=== PATIENT | male | born 1975 | race Caucasian/White ===

== ENCOUNTER 2017-11-20 20:23 | Emergency (ER) | payer MEDICARE, OTHER ==
[~2017-11-20] VITALS: Ht 185.4 cm; Wt 59.0 kg
[~2017-11-20 20:23] MED LIST: CARB200T39 PO; LAMO100T2 PO; LEVE100S PO; LEVO150T8 PO; LISI10TA5 PO
[2017-11-20 20:26] VITALS: BP 164/103
== END 2017-11-20 21:57 | disposition home or self-care (01) ==
LOC: ER 20:27
DX: R56.9 Unspecified convulsions (principal); Z88.0 Allergy status to penicillin
CPT/HCPCS: 99281; A4606; Z7502; Z7610

== ENCOUNTER 2018-11-04 11:08 | Emergency (ER) | payer MEDICARE, OTHER ==
[~2018-11-04] VITALS: Ht 185.4 cm; Wt 60.8 kg
--- NOTE | 2018-11-04 11:45 | NUR ---
DR. DESOUZA AT BEDSIDE FOR EVAL.
--- NOTE | 2018-11-04 11:56 | NUR ---
RADIOLOGY AT BEDSIDE FOR XRAY.
[2018-11-04 12:59] VITALS: BP 118/76
--- NOTE | 2018-11-04 12:59 | NUR ---
DPatient discharged to home in stable condition. Written and verbal after care instructions given. Patient verbalizes understanding of instruction.
== END 2018-11-04 12:59 | disposition home or self-care (01) ==
LOC: ER 11:13
DX: S82.431A Displaced oblique fracture of shaft of right fibula, initial encounter for closed fracture (principal); S82.54XA Nondisplaced fracture of medial malleolus of right tibia, initial encounter for closed fracture; G35 Multiple sclerosis; Z98.890 Other specified postprocedural states; Z88.0 Allergy status to penicillin; Z79.899 Other long term (current) drug therapy; W18.39XA Other fall on same level, initial encounter; Y93.89 Activity, other specified; Y92.89 Other specified places as the place of occurrence of the external cause; Y99.8 Other external cause status
CPT/HCPCS: 29515; 73610; 99283; A4606

== ENCOUNTER 2018-11-16 15:19 | Emergency (ER) | payer MEDICARE, OTHER ==
[~2018-11-16] VITALS: Ht 152.4 cm; Wt 65.8 kg
[2018-11-16 15:38] VITALS: BP 122/78
== END 2018-11-16 16:13 | disposition home or self-care (01) ==
LOC: ER 15:24
DX: S30.0XXA Contusion of lower back and pelvis, initial encounter (principal); I10 Essential (primary) hypertension; G91.9 Hydrocephalus, unspecified; G35 Multiple sclerosis; R56.9 Unspecified convulsions; Z98.890 Other specified postprocedural states; Z88.0 Allergy status to penicillin; W18.39XA Other fall on same level, initial encounter; Y93.89 Activity, other specified; Y92.002 Bathroom of unspecified non-institutional (private) residence as the place of occurrence of the external cause; Y99.8 Other external cause status
CPT/HCPCS: Z7502

== ENCOUNTER 2019-08-18 12:25 | Emergency (ER) | payer MEDICARE, OTHER ==
[~2019-08-18] VITALS: Ht 185.4 cm; Wt 58.5 kg
--- NOTE | 2019-08-18 12:40 | NUR ---
PT C/O L ANKLE PAIN STARTED 2 DAYS AGO. PT AAOX4, VSS, BREATHING EVEN AND UNLABORED ON ROOM AIR. PT CONNECTED TO THE MONITOR. WILL CONTINUE TO MONITOR
[2019-08-18] MEDS ORDERED: KETOROLAC TROMETHAMINE INJ 30 MG/ML VIAL ONE (13:56)
[2019-08-18] MEDS ORDERED: KETOROLAC TROMETHAMINE INJ 30 MG/ML VIAL IV ONE (14:00)
[2019-08-18] MEDS ORDERED: IV NS 0.9% 1,000 ML BAG IV ONE (14:00)
[2019-08-18 14:11] LABS: EOSINOPHILS % (AUTO) 0.7 % (0.0-6.0); HEMATOCRIT 42 % (39-51); HEMOGLOBIN 14.3 g/dL (13.5-17.5); LYMPHOCYTES # (AUTO) 1.3 /CMM (0.8-4.8); LYMPHOCYTES % (AUTO) 26.6 % (20.0-44.0); MEAN CORPUSCULAR HGB CONC 34 g/dl (31.0-36.0); MEAN CORPUSCULAR VOLUME 88 fL (80-96); MONOCYTES # (AUTO) 0.4 /CMM (0.1-1.30); MONOCYTES % (AUTO) 7.2 % (2.0-12.0); NEUTROPHILS # (AUTO) 3.2 /CMM (1.8-8.9); NEUTROPHILS % (AUTO) 64.5 % (43.0-81.0); PLATELET COUNT (AUTO) 225 /CMM (150-450); RED BLOOD CELL COUNT(AUTO) 4.78 MIL/uL (4.5-6.0); WHITE BLOOD COUNT (AUTO) 4.9 K/uL (4.3-11.0)
[2019-08-18 14:20] LABS: CREATININE 1.3 mg/dL (0.6-1.3); POTASSIUM 4.1 mmol/L (3.5-5.1)
[2019-08-18 14:25] LABS: BILIRUBIN,DIRECT 0.1 mg/dL (0.0-0.2); BILIRUBIN,TOTAL 0.3 mg/dL (0.2-1.0); TOTAL PROTEIN, SERUM 7.3 g/dL (6.4-8.2)
[2019-08-18] MEDS ORDERED: CEFTRIAXONE 1GM BAG (ER ONLY) 1 GM/50 ML PIGGYBACK IV ONE (15:00)
[2019-08-18] MEDS ORDERED: CEFTRIAXONE 1GM BAG (ER ONLY) 50 ML IV ONE (15:02)
--- NOTE | 2019-08-18 18:33 | NUR ---
IV removed. Catheter intact and site benign. Pressure and 4x4 applied to site. No bleeding noted.Patient discharged to home in stable condition. Written and verbal after care instructions given. Patient verbalizes understanding of instruction.
[2019-08-18 18:34] VITALS: BP 140/78
--- NOTE | 2019-08-20 09:42 | NUR ---
LATE ENTRY: ADDENDUM: ROCEPHIN 1 GM LFA G22 IV START TIME: 1519 END TIME: 1549
== END 2019-08-18 18:35 | disposition home or self-care (01) ==
LOC: ER 12:25
DX: L03.116 Cellulitis of left lower limb (principal); M62.561 Muscle wasting and atrophy, not elsewhere classified, right lower leg; M62.562 Muscle wasting and atrophy, not elsewhere classified, left lower leg; E86.0 Dehydration; G40.909 Epilepsy, unspecified, not intractable, without status epilepticus; M62.81 Muscle weakness (generalized); G35 Multiple sclerosis; Z98.890 Other specified postprocedural states; Z88.0 Allergy status to penicillin
CPT/HCPCS: 36415; 73610; 80048; 80076; 83605 ×2; 84145; 85025; 87040 ×2; 93971; 96361; 96365; 96375; 99284; J0696; J1885; J7030

== ENCOUNTER 2019-12-14 13:25 | Inpatient (IN) | payer MEDICARE, OTHER ==
[~2019-12-14] VITALS: Ht 185.4 cm; Wt 59.0 kg
--- NOTE | 2019-12-14 13:43 | NUR ---
PT TAKEN TO CT VIA SIMONE
--- NOTE | 2019-12-14 13:54 | NUR ---
BIB MANAGER VAN,"SLUMPING FORWARD" NOTED SINCE 10 AM THIS MORNING WHILE IN A MALL AND UNABLE TO UNDERSTAND HER. STATES PT CAN NORMALLY HOLD HIMSELF UP. ALSO C/O CONSTANT GRUNTING. PER MANAGER VAN, PT "JUST NOT ACTING LIKE HIMSELF". PT IS NONVERBAL, NONAMBULATORY. VSS, RR EVEN AND UNLABORED ON RA. NO ACUTE DISTRESS NOTED. TO ER 12 AND READY FOR EVAL. Addendum: 12/14/19 at 1511 by BENITA PT IS VERBAL
[2019-12-14] MEDS ORDERED: METO25TA4 PO (15:13)
[2019-12-14] MEDS ORDERED: FOLI0.4T2 PO (15:13)
[2019-12-14] MEDS ORDERED: CARB200T8 PO (15:13)
[2019-12-14] MEDS ORDERED: LEVE500T20 PO (15:13)
[2019-12-14] MEDS ORDERED: LEVE500T9 PO (15:13)
[2019-12-14] MEDS ORDERED: LAMO100T17 PO (15:13)
[2019-12-14] MEDS ORDERED: AMLO2.5T4 PO (15:13)
--- NOTE | 2019-12-14 15:30 | NUR ---
PT TAKEN TO CT VIA SIMONE
[2019-12-14 15:35] LABS: BASOPHILS % (AUTO) 0.9 % (0.0-2.0); EOSINOPHILS % (AUTO) 1.7 % (0.0-6.0); HEMATOCRIT 38 % (39-51); HEMOGLOBIN 12.8 g/dL (13.5-17.5); LYMPHOCYTES # (AUTO) 1.2 /CMM (0.8-4.8); LYMPHOCYTES % (AUTO) 24.6 % (20.0-44.0); MEAN CORPUSCULAR HGB CONC 34 g/dl (31.0-36.0); MEAN CORPUSCULAR VOLUME 90 fL (80-96); MONOCYTES # (AUTO) 0.4 /CMM (0.1-1.30); MONOCYTES % (AUTO) 8.9 % (2.0-12.0); NEUTROPHILS % (AUTO) 63.9 % (43.0-81.0); PLATELET COUNT (AUTO) 170 /CMM (150-450); RED BLOOD CELL COUNT(AUTO) 4.29 MIL/uL (4.5-6.0); WHITE BLOOD COUNT (AUTO) 4.7 K/uL (4.3-11.0)
--- NOTE | 2019-12-14 15:41 | NUR ---
MOVE SHEET SUBMITTED AND CALLED FOR TELE BED
--- NOTE | 2019-12-14 15:41 | NUR ---
PT BACK FROM RADIOLOGY
[2019-12-14 15:50] LABS: ALCOHOL, BLOOD < 3 mg/dL (0-0)
[2019-12-14 15:55] LABS: ALANINE AMINOTRANSFERASE 17 U/L (12-78); ALBUMIN 3.6 g/dL (3.4-5.0); ALKALINE PHOSPHATASE 46 U/L (46-116); ASPARTATE AMINOTRANSFERASE 21 U/L (15-37); BILIRUBIN,TOTAL 0.4 mg/dL (0.2-1.0)
--- NOTE | 2019-12-14 16:00 | NUR ---
URINE SENT TO STAT LAB
--- NOTE | 2019-12-14 16:09 | NUR ---
[facility] PAGED
[2019-12-14 16:15] LABS: CARBAMAZEPINE (TEGRETOL) 9.8 ug/ml (4-11.9)
--- NOTE | 2019-12-14 16:44 | NUR ---
[facility]#115-1
--- NOTE | 2019-12-14 17:24 | NUR ---
REPORT GIVEN TO WARREN MORALEZ FOR 115-1
[2019-12-14] MEDS ORDERED: ONDANSETRON HCL/PF 4 MG/2 ML VIAL IVP PRN (18:00)
[2019-12-14] MEDS ORDERED: ZOLPIDEM TARTRATE 5 MG TABLET PO PRN (18:00)
[2019-12-14] MEDS ORDERED: MAG HYDROX/AL HYDROX/SIMETH 30 ML UDC PO PRN (18:00)
[2019-12-14] MEDS ORDERED: MAGNESIUM HYDROXIDE 30 ML UDC PO PRN (18:00)
[2019-12-14] MEDS ORDERED: Z GUARD REMEDY 2 OZ OINT TP PRN (18:00)
[2019-12-14] MEDS ORDERED: ACETAMINOPHEN 325 MG TABLET PO PRN (18:00)
[2019-12-14] MEDS ORDERED: HYDROCODONE/APAP 5/325MG 1 EACH TABLET PO PRN (18:00)
--- NOTE | 2019-12-14 18:46 | NUR ---
[facility]
--- NOTE | 2019-12-14 18:56 | NUR ---
TELE/RN NOTES RECEIVED PATIENT FORM ER ACCOMPANIED BY ER NURSE AND CAREGIVER. PATIENT IS ALERT AND ORIENTED X4. NO PAIN OR ACUTE DISTRESS AT THIS TIME. RESPIRATION EVEN AND UNLABORED. SKIN IS DRY WARM TO TOUCH. INITIAL SKIN ASSESSMENT WAS DONE. SKIN IS INTACT. IV ACCESS ON RHAND #22G. FLUSHING WELL. NO S/S OF INFECTION OR INFILTRATION. ALL NEEDS ANTICIPATED. CALL LIGHT WITHIN REACHED. BED LOCKED AND IN LOWEST POSITION. SAFETY MAINTAINED. PLAN OF CARE DISCUSSED. WILL CONTINUE TO MONITOR CLOSELY. ENDORSED TO PM NURSE FOR ELIAN.
--- NOTE | 2019-12-14 19:41 | NUR ---
TELE/RN OPENING NOTE RECEIVED PATIENT A/O X4 PATIENT IN NO SIGN OF ANY DISTRESS. ON THE MONITOR SR WITH HR IN THE 80'S. PATIENT IS ON ROOM AIR SATURATING AT 96% WITH NO COMPLAINTS OF SOB. PATIENT HAS A RIGHT HAND #22G IV PATENT WITH NO SIGN OF ANY INFILTRATION. PATIENT IS NON AMBULATORY WITH WHEELCHAIR AT BEDSIDE. PATIENT SHOWS NO SIGN OF ANY SLURRED SPEECH. IS ABLE TO ANSWER STATE NAME AND LOCATION. NO DRIFTING IN THE UPPER EXTREMITIES. ALL SAFETY PRECUATION HAVE BEEN APPLIED. WILL CONTINUE TO MONITOR.
[2019-12-14 20:00] VITALS: BP 139/92
[2019-12-14] MEDS: LEVETIRACETAM (250 MG) 250 MG TABLET PO SCH (21:02)
[2019-12-14] MEDS: LamoTRIgine 100 MG TABLET PO SCH (21:02)
[2019-12-14 21:03] LABS: CALCIUM, SERUM 8.6 mg/dL (8.5-10.1); CREATININE 1.3 mg/dL (0.6-1.3); MAGNESIUM 2.2 mg/dL (1.8-2.4); PHOSPHORUS 4.3 mg/dL (2.5-4.9); POTASSIUM 3.9 mmol/L (3.5-5.1)
[2019-12-15] VITALS: BP 117/77
[2019-12-15 04:00] VITALS: BP 107/68
--- NOTE | 2019-12-15 07:24 | NUR ---
TELE/RN CLOSING PATIENT IN BED ALERT WITH NO SIGN OF ANY DISTRESS. PATIENT ON ROOM AIR WITH NO SIGN OF ANY SOB. PATIENT ON MONITOR SHOWING SR HR IN THE 80'S. ALL SAFETY PRECAUTIONS APPLIED. ENDORSED PATIENT TO MORNING SHIFT NURSE FOR ELIAN.
--- NOTE | 2019-12-15 07:27 | NUR ---
DIRECTOR DIVERSITY OPENING NOTES RECEIVED PATIENT A/O X4 PATIENT. AWAKE, A/O X4 , VERBALLY RESPONSIVE AND ABLE TO MAKE NEEDS KNOWN. DENIES ANY PAIN OR DISCOMFORT AT THE MOMENT. IN NO SIGN OF ANY DISTRESS. ON TELE MONITOR SR WITH HR 76. PATIENT IS ON ROOM AIR SATURATING AT 96% WITH NO COMPLAINTS OF SOB. IV ACCESS ON THE RIGHT HAND #22G IV PATENT WITH NO SIGN OF ANY INFILTRATION. NON AMBULATORY WITH WHEELCHAIR AT BEDSIDE. NO DRIFTING IN THE UPPER EXTREMITIES. SAFETY MEASURE APPLIED , WILL CONTINUE TO MONITOR
[2019-12-15] MEDS ORDERED: LEVOTHYROXINE SODIUM 150 MCG TABLET PO SCH (07:30)
[2019-12-15] MEDS: LEVOTHYROXINE SODIUM 50 MCG TABLET PO SCH ×2 (07:30→07:54)
[2019-12-15 07:47] LABS: BASOPHILS # (AUTO) 0.1 /CMM (0.0-0.2); BASOPHILS % (AUTO) 1.4 % (0.0-2.0); EOSINOPHILS % (AUTO) 2.6 % (0.0-6.0); HEMATOCRIT 37 % (39-51); HEMOGLOBIN 12.4 g/dL (13.5-17.5); LYMPHOCYTES # (AUTO) 1.7 /CMM (0.8-4.8); LYMPHOCYTES % (AUTO) 39.8 % (20.0-44.0); MEAN CORPUSCULAR HGB CONC 34 g/dl (31.0-36.0); MEAN CORPUSCULAR VOLUME 88 fL (80-96); MONOCYTES # (AUTO) 0.4 /CMM (0.1-1.30); NEUTROPHILS % (AUTO) 47.2 % (43.0-81.0); PLATELET COUNT (AUTO) 209 /CMM (150-450); RED BLOOD CELL COUNT(AUTO) 4.22 MIL/uL (4.5-6.0); WHITE BLOOD COUNT (AUTO) 4.2 K/uL (4.3-11.0)
[2019-12-15 08:00] VITALS: BP 153/85
[2019-12-15 08:04] LABS: CALCIUM, SERUM 8.6 mg/dL (8.5-10.1); CREATININE 1.4 mg/dL (0.6-1.3); MAGNESIUM 2.2 mg/dL (1.8-2.4); PHOSPHORUS 4.3 mg/dL (2.5-4.9); POTASSIUM 3.7 mmol/L (3.5-5.1)
[2019-12-15] MEDS: FOLIC ACID 1 MG TABLET PO SCH (11:09)
[2019-12-15] MEDS: CARBAMAZEPINE 200 MG TABLET PO SCH ×2 (11:09→16:58)
[2019-12-15] MEDS: METOPROLOL SUCCINATE 25 MG TAB.SR.24H PO SCH (11:10)
[2019-12-15] MEDS: LEVETIRACETAM (250 MG) 250 MG TABLET PO SCH ×2 (11:10→17:13)
[2019-12-15] MEDS: LamoTRIgine 100 MG TABLET PO SCH ×2 (11:10→20:50)
[2019-12-15] MEDS: AMLODIPINE BESYLATE 2.5 MG TABLET PO SCH (11:10)
[2019-12-15] MEDS: IV NS 0.9% 1,000 ML IV PRN ×2 (11:19→21:16)
[2019-12-15 12:00] VITALS: BP 127/81
[2019-12-15 16:00] VITALS: BP 144/87
--- NOTE | 2019-12-15 19:15 | NUR ---
SHREDDER PICKER OPENING NOTES RECEIVED PATIENT A/O X4 PATIENT. AWAKE, SITTING ON BED, VERBALLY RESPONSIVE AND ABLE TO MAKE NEEDS KNOWN. DENIES ANY PAIN OR DISCOMFORT AT THE MOMENT. IN NO SIGN OF ANY DISTRESS. ON TELE MONITOR SR WITH HR 60'S-70'S. PATIENT IS ON ROOM AIR SATURATING AT 96% WITH NO COMPLAINTS OF SOB. IV ACCESS ON THE RIGHT HAND #22G IV PATENT WITH NO SIGN OF ANY INFILTRATION WITH ONGOING IVF OF 1L NS @100ML/HR INFUSING WELL. NON AMBULATORY WITH WHEELCHAIR AT BEDSIDE. NO DRIFTING IN THE UPPER EXTREMITIES. SAFETY MEASURE APPLIED CALL LIGHT WITHIN REACH , WILL CONTINUE TO MONITOR
--- NOTE | 2019-12-15 19:33 | NUR ---
RN CLOSING NOTES PATIENT IN BED ALERT WITH NO SIGN OF ANY DISTRESS. PATIENT ON ROOM AIR WITH NO SIGN OF ANY SOB. PATIENT ON MONITOR SHOWING SR HR 65. ALL SAFETY PRECAUTIONS APPLIED. ENDORSED PATIENT TO PM RN FOR ELIAN
[2019-12-15 20:00] VITALS: BP 135/83
[2019-12-16] VITALS: BP 145/90
[2019-12-16 04:00] VITALS: BP 122/87
[2019-12-16] MEDS: IV NS 0.9% 1,000 ML IV PRN (07:00)
[2019-12-16 07:26] LABS: BASOPHILS # (AUTO) 0.1 /CMM (0.0-0.2); BASOPHILS % (AUTO) 1.8 % (0.0-2.0); EOSINOPHILS % (AUTO) 2.4 % (0.0-6.0); HEMATOCRIT 35 % (39-51); HEMOGLOBIN 11.8 g/dL (13.5-17.5); LYMPHOCYTES # (AUTO) 1.9 /CMM (0.8-4.8); LYMPHOCYTES % (AUTO) 44.8 % (20.0-44.0); MEAN CORPUSCULAR HGB CONC 34 g/dl (31.0-36.0); MEAN CORPUSCULAR VOLUME 88 fL (80-96); MONOCYTES # (AUTO) 0.4 /CMM (0.1-1.30); MONOCYTES % (AUTO) 8.7 % (2.0-12.0); NEUTROPHILS # (AUTO) 1.8 /CMM (1.8-8.9); NEUTROPHILS % (AUTO) 42.3 % (43.0-81.0); PLATELET COUNT (AUTO) 208 /CMM (150-450); RED BLOOD CELL COUNT(AUTO) 3.94 MIL/uL (4.5-6.0); WHITE BLOOD COUNT (AUTO) 4.3 K/uL (4.3-11.0)
[2019-12-16 07:44] LABS: BILIRUBIN,TOTAL 0.2 mg/dL (0.2-1.0); CREATININE 1.2 mg/dL (0.6-1.3); PHOSPHORUS 3.4 mg/dL (2.5-4.9); TOTAL PROTEIN, SERUM 5.7 g/dL (6.4-8.2)
[2019-12-16] MEDS: LEVOTHYROXINE SODIUM 50 MCG TABLET PO SCH (07:53)
[2019-12-16 08:00] VITALS: BP_SYST 145; BP_SYST 170; BP_DIAS 89; BP_DIAS 90
[2019-12-16] MEDS: CARBAMAZEPINE 200 MG TABLET PO SCH ×2 (08:48→16:46)
[2019-12-16] MEDS: FOLIC ACID 1 MG TABLET PO SCH (08:48)
[2019-12-16] MEDS: AMLODIPINE BESYLATE 2.5 MG TABLET PO SCH (08:49)
[2019-12-16] MEDS: METOPROLOL SUCCINATE 25 MG TAB.SR.24H PO SCH (08:51)
[2019-12-16] MEDS: LamoTRIgine 100 MG TABLET PO SCH (08:51)
[2019-12-16] MEDS: LEVETIRACETAM (250 MG) 250 MG TABLET PO SCH (08:52)
--- NOTE | 2019-12-16 10:52 | NUR ---
multimedia educational specialist Notes Patient BP reassessed following morning VS. BP: 131/82 P.61. Will continue to monitor.
[2019-12-16 10:55] VITALS: BP 131/82
[2019-12-16] MEDS ORDERED: ENSURE ENLIVE 237 ML LIQUID (VANILLA) PO SCH (13:00)
[2019-12-16] MEDS ORDERED: LEVE500T20 PO (13:43)
[2019-12-16 16:00] VITALS: BP 129/85
--- NOTE | 2019-12-16 17:24 | NUR ---
RN NOTE PT DISCHARGED HOME ON HIS OWN WHEELCHAIR, IN STABLE CONDITION WITH CAREGIVER AND SPOKE ABOUT DISCHARGE WITH MANDO WELL, AND REMINDED HIM ABOUT KEPPRA DOSAGE INCREASED, AND THAT PT NEEDS TO FOLLOW UP WITH OUTPATIENT NEUROLOGIST. PT AND MANDO CAREGIVER VERBALIZED UNDERSTANDING. EXIT CARE DONE, ID BAND REMOVED, IV REMOVED, DISCHARGE PAPER SIGNED, DISCHARGE INSTRUCTIONS PROVIDED, TEACHING DONE TO PT AND PT VERBALIZED UNDERSTANDING,BELONGING LIST SIGNED, BELONGINGS GIVEN TO PT.
== END 2019-12-16 17:20 | disposition home or self-care (01) | DRG 683 ==
LOC: ER 13:25 → TELE1 16:54 → MEDSG1 12-16 10:56
PROVIDERS: ADMIT Registered Nurse; ATTEND Registered Nurse
DX: N17.0 Acute kidney failure with tubular necrosis (principal); G91.9 Hydrocephalus, unspecified; E44.1 Mild protein-calorie malnutrition; G40.909 Epilepsy, unspecified, not intractable, without status epilepticus; E03.9 Hypothyroidism, unspecified; M48.02 Spinal stenosis, cervical region; I10 Essential (primary) hypertension; D63.8 Anemia in other chronic diseases classified elsewhere; G93.89 Other specified disorders of brain; Z98.2 Presence of cerebrospinal fluid drainage device; Z88.0 Allergy status to penicillin; Z98.890 Other specified postprocedural states; Z87.891 Personal history of nicotine dependence; F10.21 Alcohol dependence, in remission; Q76.49 Other congenital malformations of spine, not associated with scoliosis; M85.80 Other specified disorders of bone density and structure, unspecified site; M50.222 Other cervical disc displacement at C5-C6 level; W05.0XXA Fall from non-moving wheelchair, initial encounter; Y92.511 Restaurant or cafe as the place of occurrence of the external cause
CPT/HCPCS: 36415; 70450-TC; 71045-TC; 72125-TC; 80048-TC; 80053-TC; 80061-TC; 80076-TC; 80156-TC; 80177; 80305; 82962-TC; 83540-TC; 83735-TC; 84100-TC; 84484-TC; 85025-TC; 85730-TC; 87081-TC; 92611-TC; 93307-TC; 93880-TC; 95819-TC; 97116-TC; 97530-TC; G0378; G0480; J7030

== ENCOUNTER 2020-06-25 09:18 | Emergency (ER) | payer MEDICARE, OTHER ==
[~2020-06-25] VITALS: Ht 185.4 cm; Wt 58.1 kg
[~2020-06-25 09:18] MED LIST changes: +AMLO2.5T4 PO; -CARB200T39 PO; +CARB200T8 PO; +FOLI0.4T2 PO; +LAMO100T17 PO; -LAMO100T2 PO; -LEVE100S PO; +LEVE500T20 PO; +LEVE500T9 PO; -LISI10TA5 PO; +METO25TA4 PO
--- NOTE | 2020-06-25 09:24 | NUR ---
[id number], from home, fell of his wheelchair, -ko, lac at the back of his head, 5/10 pain scale, to ER bed 9, hooked to monitor, changed to hosp gown, warm blanket provided, patient aao x 3, breathing even and unlabored. awaiting md odom.
--- NOTE | 2020-06-25 09:32 | NUR ---
DR AMARAL AT BEDSIDE FOR EVAL.
--- NOTE | 2020-06-25 09:46 | NUR ---
FLUSHED/CLEANED BACK AREA OF HEAD, NOTED W WOUND, [id number], NO BLEEDING NOTED.
--- NOTE | 2020-06-25 10:18 | NUR ---
PICKED UP BY DRY LUMBER GRADER VIA [facility] FOR CT SCAN.
--- NOTE | 2020-06-25 11:12 | NUR ---
Patient discharged to home in stable condition. Written and verbal after care instructions given. Patient verbalizes understanding of instruction. Patient discharged using wheelchair.
[2020-06-25 11:14] VITALS: BP 116/85
== END 2020-06-25 11:15 | disposition home or self-care (01) ==
LOC: ER 09:21
DX: S00.01XA Abrasion of scalp, initial encounter (principal); G35 Multiple sclerosis; I10 Essential (primary) hypertension; M62.81 Muscle weakness (generalized); Z88.0 Allergy status to penicillin; Z79.899 Other long term (current) drug therapy; W05.0XXA Fall from non-moving wheelchair, initial encounter; Y93.89 Activity, other specified; Y92.89 Other specified places as the place of occurrence of the external cause; Y99.8 Other external cause status
CPT/HCPCS: 70450; 99284; A6403

== ENCOUNTER 2021-08-03 12:54 | Inpatient (IN) | payer MEDICARE, OTHER ==
[~2021-08-03] VITALS: Ht 185.4 cm; Wt 56.7 kg
[~2021-08-03 12:54] MED LIST changes: -FOLI0.4T2 PO; +FOLI0.4T6 PO
--- NOTE | 2021-08-03 13:40 | NUR ---
PT BIB CAREGIVER., PT WAS AT THE FLOOR WHEN CAREGIVER CAME IN, MANAGE TO OPEN THE DOOR FOR HER. PT HAS FACIAL BRUISING NOTED W/ DRY BLOOD TO HIS L NOSTRIL. NO OTHER OBVIOUS INJURY NOTED UPON INITIAL ASSESSMENT. PT IS VERBALLY RESPONSIVE ASSEMBLER RUBBER FOOTWEAR. STABLE VITALS. UNABLE TO RECALL WHAT HAPPEN BUT STATES HE MIGHT HAVE A SEIZURE EPISODE. GOWNED AND PLACED ON MONITOR. STABLE VITALS. AWAITING MD PARKS.
--- NOTE | 2021-08-03 14:10 | NUR ---
DR MCCALL AT BEDSIDE FOR EVAL.
[2021-08-03] MEDS ORDERED: LORAZEPAM INJ 2 MG/ML VIAL IV ONE (14:30)
--- NOTE | 2021-08-03 14:41 | NUR ---
PT TO RADIOLOGY FOR HEAD CT SCAN VIA [facility].
[2021-08-03 14:43] LABS: CALCIUM, SERUM 8.8 mg/dL (8.5-10.1); CARBON DIOXIDE 28 mmol/L (21-32); CHLORIDE 104 mmol/L (98-107); CREATININE 1.4 mg/dL (0.6-1.3); GLUCOSE 107 mg/dL (74-106); POTASSIUM 3.9 mmol/L (3.5-5.1); SODIUM SERUM 140 mmol/L (136-145); UREA NITROGEN, BLOOD 16 mg/dL (7-18)
[2021-08-03 14:52] LABS: BASOPHILS % (AUTO) 0.8 % (0.0-2.0); EOSINOPHILS % (AUTO) 0.3 % (0.0-6.0); HEMATOCRIT 41 % (39-51); HEMOGLOBIN 13.7 g/dL (13.5-17.5); LYMPHOCYTES # (AUTO) 1.2 K/uL (0.8-4.8); LYMPHOCYTES % (AUTO) 18.7 % (20.0-44.0); MEAN CORPUSCULAR HGB CONC 34 g/dl (31.0-36.0); MEAN CORPUSCULAR VOLUME 86 fL (80-96); MONOCYTES # (AUTO) 0.4 K/uL (0.1-1.30); NEUTROPHILS # (AUTO) 4.6 K/uL (1.8-8.9); NEUTROPHILS % (AUTO) 74.2 % (43.0-81.0); PLATELET COUNT (AUTO) 234 K/uL (150-450); RED BLOOD CELL COUNT(AUTO) 4.74 MIL/uL (4.5-6.0); WHITE BLOOD COUNT (AUTO) 6.2 K/uL (4.3-11.0)
[2021-08-03 14:59] LABS: ALANINE AMINOTRANSFERASE 20 U/L (12-78); ALBUMIN 3.9 g/dL (3.4-5.0); ALCOHOL, BLOOD < 3 mg/dL (0-0); ALKALINE PHOSPHATASE 45 U/L (46-116); ASPARTATE AMINOTRANSFERASE 14 U/L (15-37); BILIRUBIN,DIRECT 0.1 mg/dL (0.0-0.2); BILIRUBIN,TOTAL 0.3 mg/dL (0.2-1.0); TOTAL PROTEIN, SERUM 7.2 g/dL (6.4-8.2)
--- NOTE | 2021-08-03 16:35 | NUR ---
CALLED [facility] PRESS OPERATOR AND SUBMITTED MOVE SHEET
[2021-08-03] MEDS ORDERED: KETOROLAC TROMETHAMINE 15 MG/ML VIAL ONE (17:09)
[2021-08-03] MEDS ORDERED: KETOROLAC TROMETHAMINE INJ 30 MG/ML VIAL IV ONE (17:30)
--- NOTE | 2021-08-03 18:11 | NUR ---
ASSIGNED 105
--- NOTE | 2021-08-03 18:25 | NUR ---
REPORT GIVEN TO ENEDELIA. PT AWAITING TRANSFER TO FLOOR.
--- NOTE | 2021-08-03 18:50 | NUR ---
TRANSPORTED IN STABLE CONDITION.
[2021-08-03] MEDS ORDERED: ONDANSETRON HCL/PF 4 MG/2 ML VIAL IVP PRN (19:00)
[2021-08-03] MEDS ORDERED: ACETAMINOPHEN 325 MG TABLET PO PRN (19:00)
--- NOTE | 2021-08-03 19:47 | NUR ---
RN OPENING NOTE Received pt in bed, A/Ox3, cooperative. Currently laying in bed, initial admitting assessment completed. Belongings accounted for and placed in pt's chart. Currently stable on room air with no SOB or resp. distress noted. Multiple bruises and abrasions seen s/p fall from possible seizure, photos placed in pt's chart. Urinal at bedside. Patient is wheelchair bound. (L) Hand #20 IV noted, patent and flushed running NS @ 75 ml/hr. Seizure and fall precautions implemented. Safety measures implemented: bed locked in lowest position, call light within reach, bed alarm on, side rails up x3. No acute distress noted at this time.
[2021-08-03 20:00] VITALS: BP 143/80
--- NOTE | 2021-08-03 20:15 | NUR ---
RN NOTE SPOKE WITH MICHELLE KU COAT IRONER HAND REGARDING CRITICAL LAB VALUE OF TEGRETOL LEVEL 14.1. PER COAT IRONER HAND ORDERS, OKAY TO ADMINISTER SCHEDULED TEGRETOL DOSE.
[2021-08-03] MEDS: CARBAMAZEPINE 200 MG TABLET PO SCH (20:29)
[2021-08-03] MEDS ORDERED: LEVETIRACETAM (250 MG) 250 MG TABLET PO SCH (21:00)
[2021-08-03] MEDS: LEVETIRACETAM (250 MG) 250 MG TABLET PO SCH (21:44)
[2021-08-03] MEDS: LamoTRIgine 100 MG TABLET PO SCH (21:44)
[2021-08-03] MEDS: IV NS 0.9% 1,000 ML IV PRN (21:44)
[2021-08-04 04:00] VITALS: BP 110/75
--- NOTE | 2021-08-04 06:19 | NUR ---
RN CLOSING NOTE Pt remains in bed, A/Ox3, cooperative. Currently laying in bed, sleeping comfortably. Currently stable on room air with no SOB or resp. distress noted. Multiple bruises and abrasions seen s/p fall from possible seizure, photos placed in pt's chart. Urinal at bedside. Patient is wheelchair bound. (L) Hand #20 IV patent and flushed running NS @ 75 ml/hr. Seizure and fall precautions implemented. All needs and orders met throughout shift. Pending wound consult. Pt. kept clean and dry. Safety measures implemented: bed locked in lowest position, call light within reach, bed alarm on, side rails up x3. No acute distress noted at this time. Will endorse to morning shift RN.
[2021-08-04 06:33] LABS: BASOPHILS % (AUTO) 0.9 % (0.0-2.0); EOSINOPHILS % (AUTO) 1.2 % (0.0-6.0); HEMATOCRIT 36 % (39-51); HEMOGLOBIN 12.4 g/dL (13.5-17.5); LYMPHOCYTES # (AUTO) 1.6 K/uL (0.8-4.8); LYMPHOCYTES % (AUTO) 34.5 % (20.0-44.0); MEAN CORPUSCULAR HGB CONC 34 g/dl (31.0-36.0); MEAN CORPUSCULAR VOLUME 87 fL (80-96); MONOCYTES # (AUTO) 0.5 K/uL (0.1-1.30); NEUTROPHILS # (AUTO) 2.5 K/uL (1.8-8.9); NEUTROPHILS % (AUTO) 53.4 % (43.0-81.0); PLATELET COUNT (AUTO) 200 K/uL (150-450); RED BLOOD CELL COUNT(AUTO) 4.17 MIL/uL (4.5-6.0); WHITE BLOOD COUNT (AUTO) 4.6 K/uL (4.3-11.0)
[2021-08-04 06:53] LABS: CALCIUM, SERUM 8.1 mg/dL (8.5-10.1); CREATININE 1.2 mg/dL (0.6-1.3); POTASSIUM 3.9 mmol/L (3.5-5.1)
--- NOTE | 2021-08-04 07:30 | NUR ---
RN Note: Pt received alert awake oriented X 3. On RA, no breathing distress noted. Denies pain & discomfort at rest. Safety measures observed. Seizure precautions observed. IV site intact, running with IV fluids as ordered. Encourage pt to use call light for assistance. Call light within reach.
[2021-08-04 08:00] VITALS: BP 117/78
[2021-08-04] MEDS: LEVETIRACETAM (250 MG) 250 MG TABLET PO SCH ×2 (08:30→21:47)
[2021-08-04] MEDS: LamoTRIgine 100 MG TABLET PO SCH ×2 (08:31→21:48)
[2021-08-04] MEDS: FOLIC ACID 1 MG TABLET PO SCH (08:31)
[2021-08-04] MEDS: LEVOTHYROXINE SODIUM 75 MCG TABLET PO SCH (08:33)
[2021-08-04] MEDS: AMLODIPINE BESYLATE 2.5 MG TABLET PO SCH (08:33)
[2021-08-04] MEDS: METOPROLOL SUCCINATE 25 MG TAB.SR.24H PO SCH (08:33)
[2021-08-04] MEDS: CARBAMAZEPINE 200 MG TABLET PO SCH ×2 (08:37→16:53)
[2021-08-04] MEDS: IV NS 0.9% 1,000 ML IV PRN (10:54)
[2021-08-04 12:00] VITALS: BP 97/62
--- NOTE | 2021-08-04 18:25 | NUR ---
RN Note: No significant changes noted during shift. Will endorse to PM shift for continuity of care.
[2021-08-04 20:00] VITALS: BP 101/66
--- NOTE | 2021-08-04 20:00 | NUR ---
ms rn notes Received pts in bed awake a/ox3 , sating On r/a sating 98% no sob no distress noted , with lhand G20 sl intact and patent all need attended too call light with in reach kept pts clean dry and comfortable v/s stable afebrile no seizure activity noted ,will continue to monitor pts.
[2021-08-05 04:00] VITALS: BP 99/62
--- NOTE | 2021-08-05 06:46 | NUR ---
RN CLOSING NOTE Pt remains in bed, A/Ox3, cooperative and comfortable. Currently stable ,no distress noted. (L) Hand #20 IV patent intact. Seizure and fall precautions implemented. All needs and orders met throughout shift. Pt. kept clean and dry. Safety measures implemented: bed locked in lowest position, call light within reach, bed alarm on, side rails up x3. Will endorse to morning shift RN.
--- NOTE | 2021-08-05 07:06 | NUR ---
RN OPENING NOTE RECEIVED PATIENT IN BED RESTING. PATIENT IS A/O X3. PATIENT IS BREATHING EVENLY AND NONLABORED ON ROOM AIR, NO SIGNS OF ANY DISTRESS NOTED. PATIENT DOES NOT COMPLAIN OF ANY PAIN OR DISCOMFORT. PATIENT HAS IV ACCESS ON L HAND # 20 GAUGE, PATENT AND INTACT. SAFETY MEASURES ARE IN PLACE BED LOW LOCKED AND CALL LIGHT WITHIN REACH, SEIZURE PRECAUTIONS IN PLACE. WILL CONTINUE TO MONITOR
[2021-08-05] MEDS: LEVOTHYROXINE SODIUM 75 MCG TABLET PO SCH (07:33)
[2021-08-05] MEDS: ENSURE ENLIVE 237 ML LIQUID (VANILLA) PO SCH ×2 (08:30→12:47)
[2021-08-05] MEDS: CARBAMAZEPINE 200 MG TABLET PO SCH (08:31)
[2021-08-05] MEDS: LamoTRIgine 100 MG TABLET PO SCH (08:31)
[2021-08-05] MEDS: LEVETIRACETAM (250 MG) 250 MG TABLET PO SCH (08:31)
[2021-08-05] MEDS: FOLIC ACID 1 MG TABLET PO SCH (08:31)
[2021-08-05] MEDS: METOPROLOL SUCCINATE 25 MG TAB.SR.24H PO SCH (08:32)
[2021-08-05] MEDS: AMLODIPINE BESYLATE 2.5 MG TABLET PO SCH (08:33)
[2021-08-05 08:52] VITALS: BP 133/79
--- NOTE | 2021-08-05 11:39 | NUR ---
RN NOTE PATIENT COMPLAINED OF A HEADACHE, ASKED FOR TYLENOL. WILL GIVE PRN MEDICATION. WILL CONTINUE TO MONITOR
[2021-08-05] MEDS ORDERED: LEVE250T2 PO (11:40)
[2021-08-05 12:04] VITALS: BP 128/79
--- NOTE | 2021-08-05 14:18 | NUR ---
SHIPWRIGHT SUPERVISOR NOTE RECEIVED DISCHARGE ORDER. PATIENT IS A/O X4. PATIENT IS BREATHING EVENLY AND NONLABORED ON ROOM AIR. NO SIGNS OF DISTRESS NOTED. PATIENT DOES NOT COMPLAIN OF ANY PAIN OR DISCOMFORT. PATIENT WAS GIVE DISCHARGE INSTRUCTIONS BOTH VERBALLY AND IN WRITTEN FORM. PATIENT VERBALIZED UNDERSTANDING. PATIENT'S IV ACCESS WAS REMOVED CATHETER TIP INTACT AND PRESSURE DRESSING APPLIED, NO SIGNS OF BLEEDING. PATIENT WAS PICKED UP VIA PRIVATE CAR AND LEFT HOSPITAL IN STABLE CONDITION
== END 2021-08-05 14:30 | disposition home or self-care (01) | DRG 100 ==
LOC: ER 13:00 → MEDSG1 18:28
PROVIDERS: ADMIT Nurse Practitioner Acute Care; ATTEND Nurse Practitioner Acute Care
DX: G40.909 Epilepsy, unspecified, not intractable, without status epilepticus (principal); N17.0 Acute kidney failure with tubular necrosis; G91.9 Hydrocephalus, unspecified; D63.8 Anemia in other chronic diseases classified elsewhere; E03.9 Hypothyroidism, unspecified; I10 Essential (primary) hypertension; Z98.2 Presence of cerebrospinal fluid drainage device; Z20.822 Contact with and (suspected) exposure to COVID-19; W19.XXXA Unspecified fall, initial encounter; Y93.9 Activity, unspecified; Y92.009 Unspecified place in unspecified non-institutional (private) residence as the place of occurrence of the external cause
CPT/HCPCS: 36415; 70450-TC; 71045-TC; 80048-TC; 80061-TC; 80076-TC; 80156-TC; 80177; 83735-TC; 84100-TC; 85025-TC; 85730-TC; 87081-TC; 97116-TC; 97530-TC; A6403; C9803; G0378; G0480; J1885; J7030

== ENCOUNTER 2023-04-08 21:51 | Emergency (ER) | payer MEDICARE, OTHER ==
[~2023-04-08] VITALS: Ht 185.4 cm; Wt 60.3 kg
[~2023-04-08 21:51] MED LIST changes: +LEVE250T2 PO; -LEVE500T20 PO; -LEVE500T9 PO
[2023-04-08 22:06] VITALS: BP 154/102
--- NOTE | 2023-04-08 22:11 | NUR ---
BIBS FOR L TOE INJURY S/P GLF ON FRIDAY. DENIES ANY DIZZINESS OR LOC PRIOR TO FALL, BUT CANNOT RECALL EVENTS LEADING UP TO INJURY. L BIG TOE ECCHYMYOSIS NOTED WITH INTACT PMS. PT AWAKE AND ALERT X4 ARRIVED VIA WHEELCHAIR.
--- NOTE | 2023-04-09 01:06 | NUR ---
Patient discharged to home in stable condition. Written and verbal after care instructions given. Patient verbalizes understanding of instruction.
== END 2023-04-09 01:07 | disposition home or self-care (01) ==
LOC: ER 21:53
DX: S90.111A Contusion of right great toe without damage to nail, initial encounter (principal); I10 Essential (primary) hypertension; G35 Multiple sclerosis; Z79.899 Other long term (current) drug therapy; Z88.0 Allergy status to penicillin; X58.XXXA Exposure to other specified factors, initial encounter; Y93.89 Activity, other specified; Y92.89 Other specified places as the place of occurrence of the external cause; Y99.8 Other external cause status
CPT/HCPCS: 73660-TC

== ENCOUNTER 2024-01-10 00:31 | Emergency (ER) | payer MEDICARE, OTHER ==
[~2024-01-10] VITALS: Ht 186.7 cm; Wt 57.6 kg
[2024-01-10 00:53] VITALS: BP 176/113; TEMP 98.1; O2SAT 97
== END 2024-01-10 01:12 | disposition home or self-care (01) ==
LOC: EDUNIT# 00:31 → ER 00:40
DX: S50.861A Insect bite (nonvenomous) of right forearm, initial encounter (principal); I10 Essential (primary) hypertension; Z88.0 Allergy status to penicillin; Z88.8 Allergy status to other drugs, medicaments and biological substances; W57.XXXA Bitten or stung by nonvenomous insect and other nonvenomous arthropods, initial encounter; Y93.89 Activity, other specified; Y92.89 Other specified places as the place of occurrence of the external cause; Y99.8 Other external cause status

== ENCOUNTER 2024-01-30 00:02 | Emergency (ER) | payer MEDICARE ==
[~2024-01-30] VITALS: Ht 182.9 cm; Wt 59.0 kg
[2024-01-30 01:16] VITALS: BP 134/88; TEMP 98.4; O2SAT 100
== END 2024-01-30 01:40 | disposition home or self-care (01) ==
LOC: ER 00:05
DX: Z71.1 Person with feared health complaint in whom no diagnosis is made (principal); I10 Essential (primary) hypertension; Z79.899 Other long term (current) drug therapy; Z88.2 Allergy status to sulfonamides; V89.2XXA Person injured in unspecified motor-vehicle accident, traffic, initial encounter; Y93.89 Activity, other specified; Y92.89 Other specified places as the place of occurrence of the external cause; Y99.8 Other external cause status

== ENCOUNTER 2024-08-28 19:55 | Emergency (ER) | payer MEDICARE, OTHER ==
[~2024-08-28] VITALS: Ht 185.4 cm; Wt 59.0 kg
[2024-08-28 22:56] VITALS: BP 167/100; TEMP 98; O2SAT 96
== END 2024-08-28 22:57 | disposition home or self-care (01) ==
LOC: ER 21:15
DX: S93.402A Sprain of unspecified ligament of left ankle, initial encounter (principal); G35 Multiple sclerosis; G40.909 Epilepsy, unspecified, not intractable, without status epilepticus; I10 Essential (primary) hypertension; M85.80 Other specified disorders of bone density and structure, unspecified site; Z79.899 Other long term (current) drug therapy; Z88.0 Allergy status to penicillin; Z88.1 Allergy status to other antibiotic agents; Z98.2 Presence of cerebrospinal fluid drainage device; X58.XXXA Exposure to other specified factors, initial encounter; Y93.89 Activity, other specified; Y92.89 Other specified places as the place of occurrence of the external cause; Y99.8 Other external cause status
CPT/HCPCS: 73610-TC; 73630-TC

== ENCOUNTER 2024-10-03 20:12 | Emergency (ER) | payer MEDICARE, OTHER ==
[~2024-10-03] VITALS: Ht 185.4 cm; Wt 59.0 kg
[2024-10-03 20:35] VITALS: BP 179/108; TEMP 97.9; O2SAT 99
== END 2024-10-03 20:57 | disposition home or self-care (01) ==
LOC: ER 20:15
DX: M25.572 Pain in left ankle and joints of left foot (principal); I10 Essential (primary) hypertension; M85.80 Other specified disorders of bone density and structure, unspecified site; Z79.899 Other long term (current) drug therapy; Z98.2 Presence of cerebrospinal fluid drainage device; Z88.0 Allergy status to penicillin; Z88.1 Allergy status to other antibiotic agents

== ENCOUNTER 2025-02-09 02:57 | Inpatient (IN) | payer MEDICARE, OTHER ==
[~2025-02-09] VITALS: Ht 185.4 cm; Wt 59.0 kg
[2025-02-09] MEDS ORDERED: LEVOFLOXACIN 750 MG /D5W 150ML 150 ML IV ONE (03:27)
[2025-02-09] MEDS ORDERED: LEVETIRACETAM (500MG) 500 MG/5 ML VIAL IV ONE ×2 (03:27→03:33)
[2025-02-09] MEDS: LEVETIRACETAM (500MG) 1,000 MG in IV NS 0.9% 90 ML IV SCH (03:50)
[2025-02-09] MEDS: LEVOFLOXACIN 750 MG /D5W 150ML PIGGYBACK IV ONE (03:50)
[2025-02-09] MEDS: IV NS 0.9% 1,000 ML IV ONE ×2 (03:50)
[2025-02-09 03:51] LABS: BASOPHILS % (AUTO) 0.2 % (0.0-2.0); HEMATOCRIT 38 % (39-51); HEMOGLOBIN 12.6 g/dL (13.5-17.5); LYMPHOCYTES # (AUTO) 0.6 K/uL (0.8-4.8); LYMPHOCYTES % (AUTO) 5.2 % (20.0-44.0); MEAN CORPUSCULAR HEMOGLOBIN 26 PG (26.0-33.0); MEAN CORPUSCULAR HGB CONC 33 g/dl (31.0-36.0); MEAN CORPUSCULAR VOLUME 79 fL (80-96); MONOCYTES # (AUTO) 0.9 K/uL (0.1-1.30); MONOCYTES % (AUTO) 7.6 % (2.0-12.0); NEUTROPHILS # (AUTO) 10.5 K/uL (1.8-8.9); PLATELET COUNT (AUTO) 229 K/uL (150-450); RED BLOOD CELL COUNT(AUTO) 4.81 MIL/uL (4.5-6.0); RED CELL DISTRIBUTION WIDTH 14.1 % (11.5-15.0); WHITE BLOOD COUNT (AUTO) 12.1 K/uL (4.3-11.0)
[2025-02-09 04:02] LABS: INR 1.04 (0.91-1.10); PARTIAL THROMBOPLASTIN TIME 23.3 SEC (24.3-34.3)
[2025-02-09 04:06] LABS: ALANINE AMINOTRANSFERASE 27 U/L (12-78); ALBUMIN 4.1 g/dL (3.4-5.0); ALKALINE PHOSPHATASE 45 U/L (46-116); ASPARTATE AMINOTRANSFERASE 29 U/L (15-37); BILIRUBIN,DIRECT 0.1 mg/dL (0.0-0.2); BILIRUBIN,TOTAL 0.4 mg/dL (0.2-1.0); CALCIUM, SERUM 9.6 mg/dL (8.5-10.1); CARBON DIOXIDE 26 mmol/L (21-32); CHLORIDE 102 mmol/L (98-107); CREATININE 1.7 mg/dL (0.6-1.3); GLUCOSE 153 mg/dL (74-106); POTASSIUM 3.6 mmol/L (3.5-5.1); SODIUM SERUM 137 mmol/L (136-145); TOTAL PROTEIN, SERUM 7.3 g/dL (6.4-8.2); UREA NITROGEN, BLOOD 29 mg/dL (7-18)
[2025-02-09 04:09] LABS: LACTIC ACID 2.5 mmol/L (0.4-2.0)
[2025-02-09] MEDS ORDERED: LORAZEPAM INJ 2 MG/ML VIAL ONE ×2 (04:54→06:22)
[2025-02-09] MEDS: LORAZEPAM INJ 2 MG/ML VIAL IV ONE ×2 (04:56→06:25)
[2025-02-09 05:59] LABS: APPEARANCE,URINE CLEAR (CLEAR); BILIRUBIN,URINE NEGATIVE (NEGATIVE); BLOOD, URINE 1+ Ery/uL (NEGATIVE); COLOR,URINE YELLOW (YELLOW); KETONES,URINE NEGATIVE (NEGATIVE); LEUKOCYTE ESTERASE ,URINE NEGATIVE (NEGATIVE); NITRITE, URINE NEGATIVE (NEGATIVE); PROTEIN,URINE NEGATIVE (NEGATIVE); UGLUCOSE TRACE mg/dL (NEGATIVE); UROBILINOGEN,URINE 0.2 EU/dL (0.2)
[2025-02-09] MEDS ORDERED: ACETAMINOPHEN 325 MG TABLET PO PRN (06:00)
[2025-02-09] MEDS ORDERED: MAGNESIUM HYDROXIDE 30 ML UDC PO PRN (06:00)
[2025-02-09] MEDS ORDERED: ONDANSETRON HCL/PF 4 MG/2 ML VIAL IVP PRN (06:00)
[2025-02-09] MEDS ORDERED: MAG HYDROX/AL HYDROX/SIMETH 30 ML UDC PO PRN (06:00)
[2025-02-09 06:12] LABS: ADD URINE CULTURE NO; BACTERIA,URINE Rare /HPF (None Seen); SQUAMOUS EPITHELIAL CELL,UR Few /HPF (None Seen); WBC,URINE 0-2 /HPF (0-3)
[2025-02-09 06:18] LABS: AMPHETAMINE, URINE NEGATIVE (NEGATIVE); BARBITURATE, URINE NEGATIVE (NEGATIVE); CANNABINOID, URINE NEGATIVE (NEGATIVE); COCCAINE, URINE NEGATIVE (NEGATIVE); OPIATE, URINE NEGATIVE (NEGATIVE); PHENCYCLIDINE SCREEN,URINE NEGATIVE (NEGATIVE)
[2025-02-09] MEDS ORDERED: hydrALAZINE HCL IV 20 MG VIAL ONE (06:21)
[2025-02-09] MEDS: hydrALAZINE HCL IV 20 MG VIAL IV ONE (06:25)
[2025-02-09 06:28] LABS: BENZODIAZEPINE, URINE POSITIVE (NEGATIVE)
[2025-02-09 07:00] VITALS: BP 173/107; TEMP 99; O2SAT 98
[2025-02-09] MEDS ORDERED: LEVETIRACETAM (500MG) 500 MG in IV NS 0.9% 100 ML IV SCH (09:00)
[2025-02-09] MEDS ORDERED: LEVETIRACETAM (250 MG) 250 MG TABLET PO SCH (09:00)
[2025-02-09] MEDS: IV NS 0.9% 1,000 ML IV PRN (10:03)
[2025-02-09] MEDS: PANTOPRAZOLE 40 MG VIAL IV SCH (10:21)
[2025-02-09] MEDS: CARBAMAZEPINE 200 MG TABLET PO SCH (11:00)
[2025-02-09] MEDS: AMLODIPINE BESYLATE 2.5 MG TABLET PO SCH (11:01)
[2025-02-09] MEDS: LamoTRIgine 100 MG TABLET PO SCH (11:01)
[2025-02-09] MEDS: METOPROLOL SUCCINATE 25 MG TAB.SR.24H PO SCH (11:01)
[2025-02-09] MEDS ORDERED: BACL20TA PO (11:35)
[2025-02-09] MEDS ORDERED: ALEN70TA80 PO (11:35)
[2025-02-09] MEDS ORDERED: LEVO100T9 PO (11:35)
[2025-02-09] MEDS ORDERED: CYAN-51 PO (11:35)
[2025-02-09] MEDS ORDERED: MELA3TAB41 PO (11:35)
[2025-02-09] MEDS ORDERED: LEVE750T10 PO (11:35)
[2025-02-09] MEDS ORDERED: BACL10TA PO (11:35)
[2025-02-09] MEDS ORDERED: OMEG1CAP76 PO (11:35)
[2025-02-09] MEDS ORDERED: CHOL400T PO (11:35)
[2025-02-09] MEDS: LEVETIRACETAM (250 MG) 250 MG TABLET PO SCH (12:56)
[2025-02-09 16:00] VITALS: BP 143/89; TEMP 98.6; O2SAT 97
[2025-02-09] MEDS: IV NS 0.9% 500 ML BAG IV ONE (16:04)
[2025-02-09] MEDS: AMLODIPINE BESYLATE 5 MG TABLET PO ONE (16:47)
[2025-02-09 19:47] LABS: CREATININE, URINE 34.3 MG/DL (30.0-125.0); URINE TOTAL PROTEIN 34.4 mg/dL (0-11.9)
[2025-02-09 20:00] VITALS: BP 129/89; TEMP 98.4; O2SAT 96
[2025-02-10] VITALS: BP 124/92; TEMP 99.1; O2SAT 95
[2025-02-10 04:00] VITALS: BP 152/68; TEMP 98.4; O2SAT 99
[2025-02-10] MEDS ORDERED: LEVOFLOXACIN 750 MG /D5W 150ML 750 MG in PREMIX 1 EA IV SCH (06:00)
[2025-02-10 06:10] LABS: FOLIC ACID 4.8 ng/mL (>3.0)
[2025-02-10 06:55] LABS: BASOPHILS # (AUTO) 0.1 K/uL (0.0-0.2); BASOPHILS % (AUTO) 0.6 % (0.0-2.0); EOSINOPHILS % (AUTO) 0.6 % (0.0-6.0); HEMATOCRIT 41 % (39-51); HEMOGLOBIN 13.5 g/dL (13.5-17.5); LYMPHOCYTES # (AUTO) 1.5 K/uL (0.8-4.8); MEAN CORPUSCULAR HEMOGLOBIN 26 PG (26.0-33.0); MEAN CORPUSCULAR HGB CONC 33 g/dl (31.0-36.0); MEAN CORPUSCULAR VOLUME 79 fL (80-96); MONOCYTES # (AUTO) 0.7 K/uL (0.1-1.30); MONOCYTES % (AUTO) 8.8 % (2.0-12.0); NEUTROPHILS # (AUTO) 5.8 K/uL (1.8-8.9); PLATELET COUNT (AUTO) 249 K/uL (150-450); RED BLOOD CELL COUNT(AUTO) 5.17 MIL/uL (4.5-6.0); RED CELL DISTRIBUTION WIDTH 14.8 % (11.5-15.0); WHITE BLOOD COUNT (AUTO) 8.1 K/uL (4.3-11.0)
[2025-02-10 08:00] VITALS: BP 160/89; TEMP 99; O2SAT 99
[2025-02-10 08:06] LABS: ALBUMIN 3.9 g/dL (3.4-5.0); BILIRUBIN,TOTAL 0.7 mg/dL (0.2-1.0); CALCIUM, SERUM 8.8 mg/dL (8.5-10.1); CREATININE 1.3 mg/dL (0.6-1.3); MAGNESIUM 2.1 mg/dL (1.8-2.4); PHOSPHORUS 2.9 mg/dL (2.5-4.9); POTASSIUM 3.9 mmol/L (3.5-5.1); TOTAL PROTEIN, SERUM 7.4 g/dL (6.4-8.2)
[2025-02-10] MEDS: LEVOTHYROXINE SODIUM 100 MCG TABLET PO SCH (08:27)
[2025-02-10] MEDS: FOLIC ACID 1 MG TABLET PO SCH (08:28)
[2025-02-10] MEDS: PANTOPRAZOLE 40 MG TABLET.DR PO SCH (08:28)
[2025-02-10] MEDS: AMLODIPINE BESYLATE 2.5 MG TABLET PO SCH (08:30)
[2025-02-10] MEDS: LEVOFLOXACIN 750 MG /D5W 150ML 750 MG in PREMIX 1 EA IV SCH (10:25)
[2025-02-10 16:00] VITALS: BP 166/103; TEMP 97.9; O2SAT 96
[2025-02-10 20:00] VITALS: BP 152/98; TEMP 99; O2SAT 97
[2025-02-10 21:13] LABS: THYROID STIMULATING HORMONE 1.25 uIU/mL (0.358-3.74)
[2025-02-11] VITALS: BP 145/85; TEMP 98.2; O2SAT 97
[2025-02-11] MEDS: hydrALAZINE HCL IV 20 MG VIAL IV PRN (03:57)
[2025-02-11 04:00] VITALS: BP 170/100; TEMP 98.8; O2SAT 98
[2025-02-11 04:06] LABS: PTH, INTACT 289 pg/mL (15-65)
[2025-02-11 04:30] VITALS: BP 145/85
[2025-02-11] MEDS ORDERED: LEVOFLOXACIN 750 MG /D5W 150ML 750 MG in PREMIX 1 EA IV SCH (05:00)
[2025-02-11 07:22] LABS: CALCIUM, SERUM 9.1 mg/dL (8.5-10.1); CREATININE 1.2 mg/dL (0.6-1.3); MAGNESIUM 1.9 mg/dL (1.8-2.4); POTASSIUM 3.4 mmol/L (3.5-5.1)
[2025-02-11 07:42] LABS: BASOPHILS % (AUTO) 0.6 % (0.0-2.0); EOSINOPHILS % (AUTO) 0.5 % (0.0-6.0); HEMATOCRIT 40 % (39-51); HEMOGLOBIN 13.3 g/dL (13.5-17.5); LYMPHOCYTES # (AUTO) 1.1 K/uL (0.8-4.8); LYMPHOCYTES % (AUTO) 14.6 % (20.0-44.0); MEAN CORPUSCULAR HEMOGLOBIN 26 PG (26.0-33.0); MEAN CORPUSCULAR HGB CONC 34 g/dl (31.0-36.0); MEAN CORPUSCULAR VOLUME 78 fL (80-96); MONOCYTES # (AUTO) 0.6 K/uL (0.1-1.30); MONOCYTES % (AUTO) 8.6 % (2.0-12.0); NEUTROPHILS # (AUTO) 5.5 K/uL (1.8-8.9); NEUTROPHILS % (AUTO) 75.7 % (43.0-81.0); PLATELET COUNT (AUTO) 253 K/uL (150-450); RED CELL DISTRIBUTION WIDTH 14.5 % (11.5-15.0); WHITE BLOOD COUNT (AUTO) 7.2 K/uL (4.3-11.0)
[2025-02-11 08:28] VITALS: BP 155/100; TEMP 97.7; O2SAT 97
[2025-02-11] MEDS: LORAZEPAM INJ 2 MG/ML VIAL IV PRN (08:45)
[2025-02-11] MEDS: POTASSIUM CHLORIDE 20 MEQ POWDER PACKET PO SCH (10:55)
[2025-02-11] MEDS ORDERED: AMLO2.5T4 PO (11:35)
[2025-02-11] MEDS ORDERED: LEVO750T46 PO (11:35)
[2025-02-11] MEDS: CARBAMAZEPINE 200 MG TABLET PO SCH (12:19)
[2025-02-11 15:52] VITALS: BP 106/72; TEMP 98.8; O2SAT 98
[2025-02-11 20:00] VITALS: BP 134/87; TEMP 97.9; O2SAT 99
[2025-02-12] VITALS: BP_SYST 105; BP_SYST 150; BP_DIAS 90; TEMP 98.1; O2SAT 97
[2025-02-12 04:00] VITALS: BP 122/80; TEMP 98.2; O2SAT 100
[2025-02-12 08:00] VITALS: BP 128/83; TEMP 97.5; O2SAT 100
[2025-02-12] MEDS ORDERED: CARB200T8 PO ×2 (14:37→14:38)
[2025-02-12] MEDS: ENSURE ENLIVE CHOC 237 ML CAN PO SCH (17:39)
[2025-02-12 19:30] VITALS: BP 111/76; TEMP 98.2; O2SAT 100
[2025-02-14 10:07] LABS: VITAMIN B1 THIAMINE,WB 121.4 nmol/L (66.5-200.0)
[2025-02-15 10:16] LABS: LAMOTRIGINE 10.5 ug/mL (2.0-20.0)
== END 2025-02-12 20:30 | DRG 101 ==
LOC: ER 02:58 → TELE 09:00
PROVIDERS: ADMIT Nurse Practitioner Acute Care; ATTEND Nurse Practitioner Acute Care
DX: G40.909 Epilepsy, unspecified, not intractable, without status epilepticus (principal); N17.9 Acute kidney failure, unspecified; G91.9 Hydrocephalus, unspecified; E87.20 Acidosis, unspecified; R65.10 Systemic inflammatory response syndrome (SIRS) of non-infectious origin without acute organ dysfunction; N13.30 Unspecified hydronephrosis; G93.49 Other encephalopathy; E86.0 Dehydration; E03.9 Hypothyroidism, unspecified; Z20.822 Contact with and (suspected) exposure to COVID-19; E86.9 Volume depletion, unspecified; Z98.2 Presence of cerebrospinal fluid drainage device; G35 Multiple sclerosis; I10 Essential (primary) hypertension; R53.1 Weakness; M85.80 Other specified disorders of bone density and structure, unspecified site; Z88.0 Allergy status to penicillin; Z88.1 Allergy status to other antibiotic agents; Z79.899 Other long term (current) drug therapy; Z79.890 Hormone replacement therapy; Z91.199 Patient's noncompliance with other medical treatment and regimen due to unspecified reason; D63.8 Anemia in other chronic diseases classified elsewhere; Z74.09 Other reduced mobility; M89.8X9 Other specified disorders of bone, unspecified site; R33.9 Retention of urine, unspecified; G62.9 Polyneuropathy, unspecified; E87.6 Hypokalemia
CPT/HCPCS: 36415; 70450-TC; 71045-TC; 76770-TC; 80048-TC; 80053-TC; 80076-TC; 80156-TC; 80175; 80177; 81001; 82550-TC; 82553; 82570-TC; 82607-TC; 83605-TC; 83735-TC; 83921; 83970; 84100-TC; 84155; 84165; 84300-TC; 84425; 84443-TC; 85025-TC; 85730-TC; 87040-TC; 87086-TC; 92526; 92611-TC; 97110-TC; 97116-TC; 97530-TC; A4216; A4223; G0378; J0360; J1953; J1956; J2060; J2470; J7030; J7040

== ENCOUNTER → 2025-02-12 | Emergency (ER) | payer MEDICARE, OTHER ==
[~2025-02-12] MED LIST changes: +ALEN70TA80 PO; +BACL10TA PO; +BACL20TA PO; +CHOL400T PO; +CYAN-51 PO; +LEVE750T10 PO; +LEVO100T9 PO; +LEVO750T46 PO; +MELA3TAB41 PO; +OMEG1CAP76 PO
== END | disposition left against medical advice (07) ==
LOC: ER 16:55
DX: R62.7 Adult failure to thrive (principal); Z53.21 Procedure and treatment not carried out due to patient leaving prior to being seen by health care provider

== ENCOUNTER 2025-09-26 17:15 | Emergency (ER) | payer MEDICARE, OTHER ==
[~2025-09-26] VITALS: Ht 185.4 cm; Wt 59.9 kg
[~2025-09-26 17:15] MED LIST changes: -FOLI0.4T6 PO; -LEVE250T2 PO; -LEVO150T8 PO
[2025-09-26 17:32] VITALS: BP 175/113; TEMP 98.1; O2SAT 97
[2025-09-26] MEDS ORDERED: MUPI22OI2 TP (18:01)
== END 2025-09-26 18:28 | disposition home or self-care (01) ==
LOC: ER 17:23
DX: S00.81XA Abrasion of other part of head, initial encounter (principal); I10 Essential (primary) hypertension; Z88.0 Allergy status to penicillin; Z88.1 Allergy status to other antibiotic agents; Z79.899 Other long term (current) drug therapy; V00.321A Fall from snow-skis, initial encounter; Y93.89 Activity, other specified; Y92.89 Other specified places as the place of occurrence of the external cause; Y99.8 Other external cause status